=== PATIENT | male | born 1965 ===

== ENCOUNTER 2021-02-20 17:39 | Emergency (ER) | payer BC ==
[2021-02-20] MEDS ORDERED: Adenosine 6 MG/2 ML SDV IVPUSH ONE (17:48)
[2021-02-20] MEDS ORDERED: Sodium Chloride 0.9% 10 ML Syringe FLUSH PRN ×2 (17:48→17:49)
[2021-02-20] MEDS ORDERED: Adenosine 12 MG/4 ML SDV ONE (17:49)
--- NOTE | 2021-02-20 18:01 | EDM.PDOC ---
<Joni Campbell Joan - Last Filed: 02/20/21 18:03> ED HPI GENERAL MEDICAL PROBLEM - General Chief Complaint: Chest Pain Stated Complaint: CHEST PAIN, WEAKNESS Time Seen by Provider: 02/20/21 17:40 Source of Information: Reports: Patient History Limitations: Reports: No Limitations - History of Present Illness INITIAL COMMENTS - FREE TEXT/NARRATIVE: 55 y/o M c/o heart racing and feeling unwell. Symptoms started as pt was driving into town at which time he came straight to the ER. Pt states he has not been drinking enough water today and was working hard. Reports a couple beers this afternoon. No heart hx, no hx of svt, has not been sick, is not on blood thinners. Denies izaguirre, vision prob, abd pn, recent trauma, drugs. Onset: Today, Sudden Duration: Minutes: Location: Reports: Chest - Related Data Allergies Allergy/AdvReac Type Severity Reaction Status Date / Time No Known Allergies Allergy Verified 02/20/21 18:04 Home Meds: Home Meds PARoxetine [Paxil] 20 mg PO DAILY 02/20/21 [History] rOPINIRole [Requip] 2 mg PO BEDTIME 02/20/21 [History] ED ROS GENERAL - Review of Systems Review Of Systems: Comprehensive ROS is negative, except as noted in HPI. ED EXAM, GENERAL - Physical Exam Exam Limited By: No Limitations General Appearance: Alert, Mild Distress Neck: Normal Inspection, Supple, Non-Tender, Full Range of Motion Respiratory/Chest: Lungs Clear GI/Abdominal: Soft, Non-Tender Extremities: Normal Inspection, Normal Range of Motion, Non-Tender, Normal Capillary Refill, No Pedal Edema Neurological: Alert, Oriented, CN II-XII Intact, Normal Cognition, Normal Gait, Normal Reflexes, No Motor/Sensory Deficits Skin Exam: Warm, Dry, Intact, Normal Color, No Rash #1 Interpretation EKG Date: 02/20/21 Time: 17:49 Rhythm: Other (SVT) [place]: Normal P-Wave: Absent QRS: Normal ST-T: Depressed #2 Interpretation EKG Date: 02/20/21 Time: 17:57 Rhythm: NSR [place]: Normal P-Wave: Present QRS: Normal ST-T: Normal QT: Normal Departure - Departure Disposition: Home, Self-Care 01 Clinical Impression: SVT (supraventricular tachycardia) Instructions: Supraventricular Tachycardia, Adult, [id number] Forms: ED Department Discharge Additional Instructions: Return to the ER with any worsening of symptoms Follow up with your primary care facility for possible Cardiology referral Drink plenty of water Refrain from drinking alcohol <Pola Thompson - Last Filed: 02/20/21 18:30> ED HPI GENERAL MEDICAL PROBLEM Chest Pain Score (Numeric/FACES): 10 Course - Radiology Interpretation Free Text/Narrative:: [facility] - [facility] Final Radiology Report Call: [phone] assistance Online chat: [email or web address] Name: GABRIELA INFANTE Age: 55Years M Date: 02/20/2021 SSN: -- : [id number] Study: CR CHEST 1V FRONTAL Requesting Physician: POLA THOMPSON Images: 2 Addl Studies: Provided Clinical History: chest pain Contrast: Contrast Medium: Contrast Amount: Contrast Method: CONFIDENTIALITY STATEMENT This report is intended only for use by the referring physician, and only in accordance with law. If you received this in error, call [phone]. Page 1 of 1 PROCEDURE INFORMATION: Exam: XR Chest Exam date and time: 02/20/2021 6:05 PM Age: 55 years old Clinical indication: Pain; Left-sided; Additional info: Chest pain TECHNIQUE: Imaging protocol: XR of the chest. Views: 1 view. COMPARISON: No relevant prior studies available. FINDINGS: Lungs: Unremarkable. No consolidation. Pleural spaces: Unremarkable. No pleural effusion. No pneumothorax. Heart/Mediastinum: Unremarkable. No cardiomegaly. Bones/joints: Unremarkable. IMPRESSION: No acute findings. Thank you for allowing us to participate in the care of your patient. Dictated and Authenticated by: Artis Archer MD 02/20/2021 6:24 PM Central Time ([place] & [place]) <Gardenia Ruiz - Last Filed: 02/20/21 19:46> ED EXAM, GENERAL - Physical Exam Exam: See Below Course - Vital Signs Last Recorded V/S: Last Vital Signs Temp 97.2 F 02/20/21 17:59 Pulse 215 H 02/20/21 17:59 Resp 14 02/20/21 17:59 BP 138/93 H 02/20/21 17:59 Pulse Ox 99 02/20/21 17:59 - Orders/Labs/Meds Orders: Active Orders 24 hr Category Date Time Status Peripheral IV Care [RC] . DIRECTED Care 02/20/21 17:49 Active Peripheral IV Care [RC] . DIRECTED Care 02/20/21 17:50 Active Sodium Chloride 0.9% [Normal Saline] 1,000 ml Med 02/20/21 18:30 Active IV ASDIRECTED Sodium Chloride 0.9% [Saline Flush] Med 02/20/21 17:48 Active 10 ml FLUSH ASDIRECTED PRN Sodium Chloride 0.9% [Saline Flush] Med 02/20/21 17:49 Active 10 ml FLUSH ASDIRECTED PRN Peripheral IV Insertion Adult [OM.PC] Stat Oth 02/20/21 17:48 Ordered Peripheral IV Insertion Adult [OM.PC] Stat Oth 02/20/21 17:49 Ordered Medication Orders Sodium Chloride (Normal Saline) 1,000 mls @ 999 mls/hr IV ASDIRECTED JUAN ALBERTO Stop: 02/24/21 18:19 Last Admin: 02/20/21 18:00 Dose: 999 mls/hr Documented by: JYOTI Sodium Chloride (Sodium Chloride 0.9% 10 Ml Syringe) 10 ml FLUSH ASDIRECTED PRN PRN Reason: Keep Vein Open Sodium Chloride (Sodium Chloride 0.9% 10 Ml Syringe) 10 ml FLUSH ASDIRECTED PRN PRN Reason: Keep Vein Open Labs: Laboratory Tests 02/20/21 02/20/21 02/20/21 Range/Units 17:55 17:55 17:55 WBC 10.6 H (5.0-10.0) 10^3/uL RBC 5.41 (4.6-6.2) 10^6/uL Hgb 16.4 (14.0-18.0) g/dL Hct 48.4 (40.0-54.0) % MCV 89.5 (80-100) fL MCH 30.3 (27.0-34.0) pg MCHC 33.9 (33.0-35.0) g/dL Plt Count 256 (150-450) 10^3/uL Neut % (Auto) 45.4 (42.2-75.2) % Lymph % (Auto) 38.3 (20.5-50.1) % [place] % (Auto) 12.9 H (2-8) % Eos % (Auto) 2.8 (1.0-3.0) % Baso % (Auto) 0.6 (0.0-1.0) % PT 9.9 (9.0-12.0) SEC INR 1.0 (0.9-1.2) APTT 25.1 (22.0-34.0) SEC Sodium 142 (136-145) mmol/L Potassium 3.9 (3.5-5.1) mmol/L Chloride 104 (98-107) mmol/L Carbon Dioxide 28 (21-32) mmol/L Anion Gap 13.9 H (7-13) mEq/L BUN 26 H (7-18) mg/dL Creatinine 1.26 (0.70-1.30) mg/dL Est Cr Clr Drug Dosing 66.79 mL/min Estimated GFR (MDRD) 59 BUN/Creatinine Ratio 20.6 (No establ ref range) Glucose 114 H (70-99) mg/dL Calcium 9.2 (8.5-10.1) mg/dL Magnesium 2.3 (1.8-2.4) mg/dL Total Bilirubin 1.0 (0.2-1.0) mg/dL AST 49 H (15-37) U/L ALT 92 H (16-63) U/L Alkaline Phosphatase 88 (46-116) U/L Troponin I High Sens 5 (<=76) pg/mL B-Natriuretic Peptide 61 (0-100) pg/ml Total Protein 8.1 (6.4-8.2) g/dL Albumin 4.2 (3.4-5.0) g/dL Globulin 3.9 Albumin/Globulin Ratio 1.1 TSH, Ultra Sensitive 2.07 (0.36-3.74) uIU/mL Ethyl Alcohol < 3 (0) mg/dL Meds: Medications Generic Name Dose Route Start Last Admin Trade Name Freq PRN Reason Stop Dose Admin Sodium Chloride 1,000 mls @ 999 mls/hr 02/20/21 18:30 02/20/21 18:00 Normal Saline IV 02/24/21 18:19 999 mls/hr ASDIRECTED JUAN ALBERTO Administration Sodium Chloride 10 ml 02/20/21 17:48 Sodium Chloride 0.9% 10 Ml Syringe FLUSH ASDIRECTED PRN Keep Vein Open Sodium Chloride 10 ml 02/20/21 17:49 Sodium Chloride 0.9% 10 Ml Syringe FLUSH ASDIRECTED PRN Keep Vein Open Discontinued Medications Generic Name Dose Route Start Last Admin Trade Name Freq PRN Reason Stop Dose Admin Adenosine 12 mg 02/20/21 17:48 02/20/21 17:55 Adenosine 6 Mg/2 Ml Sdv IVPUSH 02/20/21 17:49 12 mg NOW ONE Administration Adenosine Confirm 02/20/21 17:49 02/20/21 18:17 Adenosine 12 Mg/4 Ml Sdv Administered 02/20/21 17:50 Not Given Dose 12 mg .ROUTE .STK-MED ONE Dextrose/Water 50 ml 02/20/21 19:21 50% Dextrose In Water 50 Ml Syringe IVPUSH 02/20/21 19:22 ONETIME ONE Departure - Departure Time of Disposition: 19:44 Reason for Transfer *Q: Other Condition: Good Sepsis Event Note (ED) - Focused Exam Vital Signs: Vital Signs Temp Pulse Resp BP Pulse Ox 02/20/21 17:59 97.2 F 215 H 14 138/93 H 99
--- NOTE | 2021-02-20 18:24 | CR ---
PROCEDURE INFORMATION: Exam: XR Chest Exam date and time: 02/20/2021 6:05 PM Age: 55 years old Clinical indication: Pain; Left-sided; Additional info: Chest pain TECHNIQUE: Imaging protocol: XR of the chest. Views: 1 view. COMPARISON: No relevant prior studies available. FINDINGS: Lungs: Unremarkable. No consolidation. Pleural spaces: Unremarkable. No pleural effusion. No pneumothorax. Heart/Mediastinum: Unremarkable. No cardiomegaly. Bones/joints: Unremarkable. IMPRESSION: No acute findings.
[2021-02-20 18:26] LABS: PTT,PARTIAL THROMBOPLSTIN TIME 25.1 SEC (22.0-34.0)
[2021-02-20] MEDS ORDERED: Sodium Chloride 0.9% 1,000 ML IV SCH (18:30)
[2021-02-20 18:39] LABS: ANION GAP 13.9 mEq/L (7-13); CHLORIDE,CL 104 mmol/L (98-107); SODIUM,NA 142 mmol/L (136-145)
[2021-02-20] MEDS ORDERED: 50% Dextrose in Water 50 ML Syringe IVPUSH ONE (19:21)
== END 2021-02-20 19:56 | disposition home or self-care (01) ==
LOC: DL.ED 17:39
DX: I47.1 Supraventricular tachycardia (principal)
CPT/HCPCS: 36415; 71045; 80053; 80307; 83735; 83880; 84443; 84484; 85025; 85610; 85730; 93005; 96374; 99285; J0153; J7030